=== PATIENT | female | born 1955 | race Caucasian/White ===

== ENCOUNTER → 2019-09-24 | Day surgery (SDC) | payer MEDICARE, BC ==
--- OUTSIDE RECORDS SUMMARY | 2019-09-23 12:12 | XMSREPORT | Referral Summary ---
:1955 Author Organization [facility] and [facility] s Address [address] [place] [address] Care Team Providers Name Role Phone Di Knight MD Unavailable Mellisa Lagos MD Primary Care Provider Mellisa Lagos MD Attributed Provider Reason for Referral Transitions of Care (Routine) Status Reason Specialty Diagnoses / Referred By Referred To Procedures Contact Contact New Request Patient Diagnoses Family history of colon cancer in mother Addy Lagos Chi S t Preference D, [facility], [address] [facility] [place] [address] [address] Phone: [place] [address] Fax: Reason for Visit Reason Comments Colon Cancer Screening BP meds Encounter Details Date Type Department Care Team Description 09/07/2019 Office Visit [facility] Addy Lagos Esse ntial hypertension (Primary Dx); Clinic Family Medictheo mederos MD Dyslipidemia; [address] Hypothyroidism, unspecified type; SHANEL GALLEGOS [id number] [place] Family history of colon canc er in mother [phone] Allergies Active Allergy Reactions Severity Noted Date Comments Codeine Nausea and Vomiting 09/13/2012 Penicillin Rash 01/22/2012 documented as of this encounter (statuses as of 09/07/2019) Medications Medication Sig Dispensed Refills Start Date End Date Status simvastatin (ZOCOR) Take 20 mg by 0 Active 20 mg tablet mouth every night at bedtime. aspirin 81 mg Take 81 mg by 0 Ac tive enteric coated mouth 1 time tablet per day. cholecalciferol Take 2,000 0 Act veda (VITAMIN D3) 2000 Units by mouth UNITS capsule 1 time per day ibuprofen Take 600 mg by 0 Activ e (ADVIL;MOTRIN-IB) mouth every 6 200 mg tablet hours as needed for moderate pain albuterol HFA Inhale 1 puff 3 Inhaler 0 12/25/2017 A ctive (ALBUTEROL, VENTOLIN orally every 6 BRAND,) 108 (90 hours as needed Base) MCG/ACT for shortness inhalerIndications: of breath, Mild intermittent wheezing or asthma without cough Shake complication well before using. predniSONE 20 mg 3 po Once Daily 18 tablet 0 02/26/2019 Active tabletIndications: x 3 days then 2 Sinusitis, po Once Daily x unspecified 3 days then 1 chronicity, po Once Daily x unspecified 3 days location, Moderate persistent asthma without complication pantoprazole TAKE 1 TABLET 90 tablet 1 03/13/2019 Ac tive (PROTONIX) 40 mg BY MOUTH DAILY enteric coated tabletIndications: Essential hypertension DULoxetine TAKE ONE 90 capsule 1 03/13/2019 Active (CYMBALTA) 60 mg CAPSULE BY capsuleIndications: MOUTH ONCE Osteoporosis, DAILY FOR unspecified DEPRESSION, osteoporosis type, ANXIETY, NERVE unspecified PAIN pathological fracture presence amLODIPine (NORVASC) TAKE 2 TABLETS 180 tablet 1 03/13/2019 Active 5 mg BY MOUTH ONCE tabletIndications: DAILY Essential hypertension calcitriol TAKE ONE 90 capsule 1 03/13/2019 Active (ROCALTROL) 0.25 mcg CAPSULE BY capsuleIndications: MOUTH DAILY Osteoporosis, unspecified osteoporosis type, unspecified pathological fracture presence potassium chloride TAKE 1 TABLET 90 tablet 1 03/13/2019 Active (K-TAB) 10 mEq CR BY MOUTH DAILY tabletIndications: FOR POTASSIUM Essential SUPPLEMENT hypertension raloxifene (EVISTA) TAKE 1 TABLET 90 tablet 1 03/13/2019 Active 60 mg BY MOUTH ONCE tabletIndications: DAILY Osteoporosis, unspecified osteoporosis type, unspecified pathological fracture presence levoFLOXacin Take 1 tablet 10 tablet 0 04/28/2019 Ac tive (LEVAQUIN) 500 mg (500 mg) by tabletIndications: mouth 1 time Sinusitis, per day unspecified chronicity, unspecified location montelukast Take 1 tablet 90 tablet 3 05/01/2019 05/06/19 Act veda (SINGULAIR) 10 mg (10 mg) by 21 tabletIndications: mouth every Mild intermittent night at asthma without bedtime complication azelastine (ASTELIN) USE 2 SPRAYS IN 90 mL 3 05/14/2019 Active 137 mcg/spray nasal EACH NOSTRIL sprayIndications: EVERY 12 HOURS Chronic allergic rhinitis diclofenac sodium Take 1 tablet 180 tablet 4 05/19/2019 Active (VOLTAREN) 75 mg (75 mg) by 21 delayed-release mouth 2 times a (enteric coated) day tabletIndications: Chronic pain of left knee levothyroxine 175 TAKE 1 90 tablet 0 07/13/2019 A ctive mcg TABLET(175 MCG) tabletIndications: BY MOUTH EVERY Hypothyroidism, DAY unspecified type lisinopril-hydroCHLO Take 1 tablet 180 tablet 1 09/07/2019 Active ROthiazide by mouth 2 (ZESTORETIC) 10-12.5 times a day mg tabletIndications: Essential hypertension lisinopril-hydroCHLO TAKE 1 TABLET 90 tablet 1 03/13/201908/12 Discontinued ROthiazide BY MOUTH EVERY 20 (ZESTORETIC) 10-12.5 DAY mg tabletIndications: Essential hypertension documented as of this encounter (statuses as of 09/07/2019) Active Problems Problem Noted Date Primary osteoarthritis of left knee 05/19/2019 GERD (gastroesophageal reflux disease) 02/05/2019 Mild intermittent asthma without complication 02/06/20 19 Severe obesity (BMI 35.0-39.9) with comorbidity 2018 History of thyroid cancer 12/25/2017 Essential hypertension 12/25/2017 Hypothyroidism 12/25/2017 Dyslipidemia 12/25/2017 Postoperative hypothyroidism 12/25/2017 S/P vascular surgery documented as of this encounter (statuses as of 09/07/2019) Immunizations Name Administration Dates Next Due Influenza Trivalent w/preserv 11/17/2013, 11/21/2011, 11/29, 12/06/2009 FLU VACCINE HIGH DOSE 65YR+(Fluzone) 10/29/2018 FLU VACCINE SINGLE DOSE 11/18/2017 0.5mL(6MO+Fluzone/Flulaval/Fluarix,3YR +Afluria) Influenza Vaccine,unspecified 11/18/2017, 11/19/2016, 2015, 11/09/2014, 11/17/2013, 11/18/2012, 11/21/2011, 11/29/2010, 12/06/2009 Pneumococcal Conj PCV13 09/20/2016 Pneumococcal Polysaccharide PPSV23 10/29/2018 Sodium Tetradecyl 01/31/2016 TDAP 02/27/2012 Zoster Live(Zostavax) 09/20/2016 documented as of this encounter Social History Tobacco Use Types Packs/Day Years Used Date Former Smoker Quit: 12/25/18 88 Smokeless Tobacco: Never Used Alcohol Use Drinks/Week oz/Week Comments Yes occ Physical Activity Answer Date Recorded On average, how many days per week do you engage in moderate to 1 day 04/09/2019 strenuous exercise (like walking fast, running, jogging, dancing, swimming, biking, or other activities that cause a light or heavy sweat)? On average, how many minutes do you engage in exercise at th is 30 min 04/09/2019 level? Sex Assigned at Date Recorded Not on file Job Start Date Occupation Industry Not on file Not on file Not on file Travel History Travel Start Travel End No recent travel history available. documented as of this encounter Last Filed Vital Signs Vital Sign Reading Time Taken Comments Blood Pressure 150/82 09/07/2019 9:03 AM CDT Pulse 100 09/07/2019 9:03 AM CDT Temperature 35.9 C (96.6 F) 09/07/2019 9:03 AM CDT Respiratory Rate - - Oxygen Saturation 96% 09/07/2019 9:03 AM CDT Inhaled Oxygen Concentration - - Weight 103.9 kg (229 lb) 09/07/2019 9:03 AM CDT Height - - Body Mass Index 38.11 05/19/2019 9:23 AM CDT documented in this encounter Functional Status Functional Status Response Date of Assessment Is the person deaf or does he/she have serious difficulty No 12/13/2015 hearing? Is this person blind or does he/she have difficulty No 12/13/2015 seeing even when wearing glasses? Do you have difficulty with walking, balance, climbing Yes 04/09/2019 stairs, or had a fall in the last 3 months? Does the patient have difficulty dressing or bathing? No 09/16/2014 Because of a physical, mental, or emotional condition; No 09/16/2014 does this person have difficulty doing errands alone such as visiting a doctor's office or shopping? Cognitive Status Response Date of Assessment Because of a physical, mental, or emotional condition; No 09/16/2014 does this person have serious difficulty concentrating, remembering, or making decisions? documented as of this encounter Progress Notes Addy Lagos MD - 09/07/2019 9:17 AM CDT Assessment / Plan Essential hypertension - COMPREHENSIVE METABOLIC PANEL; Future - lisinopril-hydroCHLOROthiazide (ZESTORETIC) 10-12.5 mg tablet; Take 1 tablet by mouth 2 times a day Dispense: 180 tablet; Refill: 1 Dyslipidemia - COMPREHENSIVE METABOLIC PANEL; Future Hypothyroidism, unspecified type Family history of colon cancer in mother - CLINIC REFERRAL ENDOSCOPY NON ONE CHART Plan: 1laboratory studies pending Colonoscopy order placed We will continue her present antihypertensive regimen and consider titrating up further next month if needed. Medications Outpatient Medications Prior to Visit Medication Sig Dispense Refill levothyroxine 175 mcg tablet TAKE 1 TABLET(175 MCG) BY MOUTH EVERY DAY 90 tablet 0 diclofenac sodium (VOLTAREN) 75 mg delayed-release (enteric coated) tablet Take 1 tablet (75 mg)by mouth 2 times a day 180 tablet 4 azelastine (ASTELIN) 137 mcg/spray nasal spray USE 2 SPRAYS IN EACH NOSTRIL EVERY 12 HOURS 90 mL3 montelukast (SINGULAIR) 10 mg tablet Take 1 tablet (10 mg) by mouth every night at bedtime 90 tablet 3 levoFLOXacin (LEVAQUIN) 500 mg tablet Take 1 tablet (500 mg) by mouth 1 time per day 10 tablet 0 pantoprazole (PROTONIX) 40 mg enteric coated tablet TAKE 1 TABLET BY MOUTH DAILY 90 tablet 1 amLODIPine (NORVASC) 5 mg tablet TAKE 2 TABLETS BY MOUTH ONCE DAILY 180 tablet 1 calcitriol (ROCALTROL) 0.25 mcg capsule TAKE ONE CAPSULE BY MOUTH DAILY 90 capsule 1 potassium chloride (K-TAB) 10 mEq CR tablet TAKE 1 TABLET BY MOUTH DAILY FOR POTASSIUM SUPPLEMENT 90 tablet 1 raloxifene (EVISTA) 60 mg tablet TAKE 1 TABLET BY MOUTH ONCE DAILY 90 tablet 1 albuterol HFA (ALBUTEROL, VENTOLIN BRAND,) 108 (90 Base) MCG/ACT inhaler Inhale 1 puff orally every 6 hours as needed for shortness of breath, wheezing or cough Shake well before using. 3 Inhaler 0 cholecalciferol (VITAMIN D3) 2000 UNITS capsule Take 2,000 Units by mouth 1 time per day ibuprofen (ADVIL;MOTRIN-IB) 200 mg tablet Take 600 mg by mouth every 6 hours as needed for moderate pain aspirin 81 mg enteric coated tablet Take 81 mg by mouth 1 time per day. simvastatin (ZOCOR) 20 mg tablet Take 20 mg by mouth every night at bedtime. DULoxetine (CYMBALTA) 60 mg capsule TAKE ONE CAPSULE BY MOUTH ONCE DAILY FOR DEPRESSION, ANXIETY, NERVE PAIN 90 capsule 1 lisinopril-hydroCHLOROthiazide (ZESTORETIC) 10-12.5 mg tablet TAKE 1 TABLET BY MOUTH EVERY DAY 90 tablet 1 predniSONE 20 mg tablet 3 po Once Daily x 3 days then 2 po Once Daily x 3 days then 1 po Once Daily x 3 days 18 tablet 0 Facility-Administered Medications Prior to Visit Medication Dose Route Frequency Provider Last Rate Last Dose vancomycin 1,500 mg in sodium chloride 0.9% 250 mL 1,500 mg IV 1 time Kristofer Strickland DO sodium chloride 0.9% IV solution flush bag 250 mL 250 mL IV Continuous Kristofer Strickland DO Allergies Allergies Allergen Reactions Penicillin Rash Codeine Nausea and Vomiting Problem List Patient Active Problem List Diagnosis S/P vascular surgery History of thyroid cancer Essential hypertension Hypothyroidism Dyslipidemia GERD (gastroesophageal reflux disease) Mild intermittent asthma without complication Postoperative hypothyroidism Severe obesity (BMI 35.0-39.9) with comorbidity (HCC) Primary osteoarthritis of left knee History Dayanna presents today for review of her blood pressure. She is due for lab work. She also has dyslipidemia and is due for her liver function tests. We did increase her lisinopril to twice daily a few days ago. She has noticed her pressures are starting to come down. Her home readings are running in the 140s systolic now. We'll have her continue that dose and recheck her blood pressure in another 3 weeks or so. She is also due for her colonoscopy. It is just over 5 years now. We will get that scheduled for [facility]. That would be her preference. This is being done for her family history of a mother with colon cancer. No other concerns today Physical Exam BP 150/82 Pulse 100 Temp 96.6 F (35.9 C) (Tympanic) Wt 103.9 kg (229 lb) SpO2 96% BMI 38.11kg/m2|| Heartnormal sinus rhythm Lungsclear No lower extremity edema. documented in this encounter Plan of Treatment Name Type Priority Associated Diagnoses Order S [facility] COMPREHENSIVE METABOLIC Lab Routine [facility] hypertension Expected: 09/07/2019 PANEL Dyslipidemia (Approximate), Expires: 2020 Name Type Priority Associated Diagnoses Order S [facility] CLINIC REFERRAL Referral Routine Family history of colon O rdered: 09/07/2019 ENDOSCOPY NON ONE CHART cancer in mother documented as of this encounter Visit Diagnoses Diagnosis Essential hypertension - Primary Unspecified essential hypertension Dyslipidemia Other and unspecified hyperlipidemia Hypothyroidism, unspecified type Family history of colon cancer in mother documented in this encounter"
[~2019-09-24] MED LIST: Midazolam 1 MG/ML 2 ML SDV ONE; Propofol 200 MG/20 ML SDV ONE; Sodium Chloride 0.9% 1,000 ML IV SCH; fentaNYL 100 MCG/2 ML SDV ONE
--- NOTE | 2019-09-24 15:01 | OR ---
DATE OF PROCEDURE: 09/24/2019 SURGEON: Antony Nieves MD PROCEDURE: Colonoscopy. FINDINGS: Normal colonoscopy. COMPLICATIONS: None. DIALS SUPERVISOR: None. ANESTHESIA: MAC. PREOPERATIVE DIAGNOSIS: Family history of colorectal cancer. POSTOPERATIVE DIAGNOSIS: Family history of colorectal cancer. RISKS: Risks, benefits, alternatives, and limitations including, but not limited to infection, bleeding, and perforation were explained to the patient, who wished to proceed. PROCEDURE IN DETAIL: The patient was placed in the left lateral decubitus position. Digital rectal exam was performed without abnormality. Scope was introduced and advanced atraumatically to the ileocecal valve. A photo was taken of this. Scope was brought back through the ascending, transverse, descending colon, and retroflexed. No evidence of old or new blood. No masses. No polyps. No abnormalities on retroflexion. The patient tolerated the procedure well. Antony Nieves MD /[id number]
== END ==
LOC: JP.SDS 06:28
PROVIDERS: ATTEND Surgery
DX: Z12.11 Encounter for screening for malignant neoplasm of colon (principal); J45.909 Unspecified asthma, uncomplicated; I10 Essential (primary) hypertension; K21.9 Gastro-esophageal reflux disease without esophagitis; E66.01 Morbid (severe) obesity due to excess calories; E03.9 Hypothyroidism, unspecified; Z88.0 Allergy status to penicillin; Z88.5 Allergy status to narcotic agent; Z80.8 Family history of malignant neoplasm of other organs or systems; Z68.36 Body mass index [BMI] 36.0-36.9, adult; Z80.0 Family history of malignant neoplasm of digestive organs
CPT/HCPCS: G0105; J2250; J2704; J3010; J7030

== ENCOUNTER 2020-12-18 10:38 | Emergency (ER) | payer MEDICARE, BC ==
--- NOTE | 2020-12-18 10:45 | EDM.PDOC ---
ED HPI GENERAL MEDICAL PROBLEM - General Chief Complaint: Lower Extremity Injury/Pain Stated Complaint: MEDICAL VIA [facility] Time Seen by Provider: 12/18/20 10:39 Source of Information: Reports: Patient, EMS, Old Records History Limitations: Reports: No Limitations - History of Present Illness INITIAL COMMENTS - FREE TEXT/NARRATIVE: 65 yo female with a somewhat recent hx of R hip replacement presents via EMS with R hip pain after she "moved her leg wrong". EMS administered IV Dilaudid, Zofran, and Versed. Her surgery was at [facility]. Onset: Today, Sudden Onset Date: 12/18/20 Duration: Minutes: Location: Reports: Lower Extremity, Right Quality: Reports: Ache (at rest, sharp with movement), Sharp, Stabbing Severity: Severe (only with movement) Improves with: Reports: Rest Worsens with: Reports: Movement Context: Reports: Other (see HPI) Associated Symptoms: Reports: No Other Symptoms Treatments MENTAL HEALTH PROGRAM MANAGER: Reports: Other (see below) (See HPI) - Related Data Allergies Allergy/AdvReac Type Severity Reaction Status Date / Time codeine Allergy Nausea Verified 09/24/19 06:47 Penicillins Allergy Rash Verified 09/24/19 06:47 Home Meds: Home Meds Albuterol [Ventolin HFA] 1 puff IH Q4H PRN 09/22/19 [History] Aspirin [Halfprin] 81 mg PO DAILY 09/22/19 [History] Azelastine [Astelin Nasal Soln] 2 sprays NASBOTH Q12HR PRN 09/22/19 [History] DULoxetine HCl [Duloxetine HCl] 60 mg PO DAILY 09/22/19 [History] Levothyroxine 200 mcg PO ACBREAKFAST 09/22/19 [History] Pantoprazole Sodium [Protonix] 40 mg PO DAILY 09/22/19 [History] amLODIPine Besylate [Amlodipine Besylate] 5 mg PO DAILY 09/22/19 [History] calcitrioL [Calcitriol] 0.25 mcg PO DAILY 09/22/19 [History] Cetirizine HCl [Allergy Relief] 10 mg PO DAILY 09/24/19 [History] Montelukast [Singulair] 10 mg PO DAILY 09/24/19 [History] Acetaminophen [Pain Relief] 650 mg PO Q6H PRN 12/18/20 [History] Acetaminophen/oxyCODONE [Percocet 325-5 MG] 1 each PO Q4HR PRN #12 tab 12/18/20 [Rx] Ascorbic Acid [Vitamin C] 1,000 mg PO DAILY 12/18/20 [History] Calcium Carb, Citrate/Vit D3 [Citracal + D ER] 1 tab PO DAILY 12/18/20 [History] Cholecalciferol (Vitamin D3) [Vitamin D3] 2,000 units PO DAILY 12/18/20 [History] Lisinopril/Hydrochlorothiazide [Lisinopril-Hctz 10-12.5 mg Tab] 1 tab PO BID 12/18/20 [History] Melatonin 5 mg PO BEDTIME 12/18/20 [History] Naproxen 250 mg PO BID 12/18/20 [History] Simvastatin 20 mg PO DAILY 12/18/20 [History] Past Medical History HEENT History: Reports: Allergic Rhinitis, Impaired Vision Cardiovascular History: Reports: Hypertension, SOB on Exertion Respiratory History: Reports: Asthma Gastrointestinal History: Reports: GERD Genitourinary History: Reports: None PERSONAL BANKING REPRESENTATIVE History: Reports: Musculoskeletal History: Reports: Arthritis Neurological History: Reports: None Psychiatric History: Reports: Anxiety, Depression Endocrine/Metabolic History: Reports: Hypothyroidism Hematologic History: Reports: None Immunologic History: Reports: None Oncologic (Cancer) History: Reports: Thyroid Dermatologic History: Reports: None - Infectious Disease History Infectious Disease History: Reports: Chicken Pox, Scarlet Fever - Past Surgical History HEENT Surgical History: Reports: Tonsillectomy, Other (See Below) Other HEENT Surgeries/Procedures: DEVIATED SEPTRUM SURGERY Cardiovascular Surgical History: Reports: None Respiratory Surgical History: Reports: None GI Surgical History: Reports: Colonoscopy, EGD Female Surgical History: Reports: Section Endocrine Surgical History: Reports: None Neurological Surgical History: Reports: None Musculoskeletal Surgical History: Reports: Shoulder Surgery Oncologic Surgical History: Reports: Other (See Below) Other Oncologic Surgeries/Procedures: THYROIDECTOMY Dermatological Surgical History: Reports: None Social & Family History - Family History Family Medical History: No Pertinent Family History - Caffeine Use Caffeine Use: Reports: Coffee Review of Systems - Review of Systems Review Of Systems: See Below Constitutional: Reports: No Symptoms Respiratory: Reports: No Symptoms Cardiovascular: Reports: No Symptoms GI/Abdominal: Reports: No Symptoms Musculoskeletal: Reports: Joint Pain (R hip) Skin: Reports: No Symptoms Neurological: Reports: No Symptoms ED EXAM, GENERAL - Physical Exam Exam: See Below Exam Limited By: No Limitations General Appearance: Alert, WD/WN, No Apparent Distress, Obese Eye Exam: Bilateral Eye: Normal Inspection Ears: Normal External Exam, Hearing Grossly Normal. No: Hearing Loss Ear Exam: Bilateral Ear: Auricle Normal Nose: Normal Inspection, No Blood Throat/Mouth: Normal Inspection, Normal Lips, Normal Oropharynx, Normal Voice, No Airway Compromise Head: Atraumatic, Normocephalic Neck: Normal Inspection Respiratory/Chest: No Respiratory Distress, Lungs Clear, Normal Breath Sounds, No Accessory Muscle Use Cardiovascular: Regular Rate, Rhythm, No Edema Extremities: Normal Inspection, No Pedal Edema. No: Normal Range of Motion, Non-Tender, Pedal Edema, Sanjay's Sign Neurological: Alert, Oriented, CN II-XII Intact, Normal Cognition, No Motor/Sensory Deficits Psychiatric: Normal Affect, Normal Mood Skin Exam: Warm, Dry, Intact, Normal Color, No Rash Course - Vital Signs Last Recorded V/S: Last Vital Signs Temp 35.5 C L 12/18/20 11:07 Pulse 86 12/18/20 11:07 Resp 18 12/18/20 11:07 BP 150/68 H 12/18/20 11:07 Pulse Ox 93 L 12/18/20 11:07 - Radiology Interpretation Free Text/Narrative:: R hip [id number]: Prior right total hip arthroplasty. Components appear well seated and normally aligned. Age indeterminate avulsion fracture of the superior aspect of the greater trochanter. Recommend comparison with prior studies. If there are no prior studies this could be further evaluated with CT. Calcified mass in the pelvis is presumably related to a fibroid. Dictated by Landon Wills MD @ 12/18/2020 12:44:36 PM Departure - Departure Time of Disposition: 13:10 Disposition: Home, Self-Care 01 Condition: Fair Clinical Impression: Right hip pain - Discharge Information *PRESCRIPTION DRUG MONITORING PROGRAM REVIEWED*: Yes *COPY OF PRESCRIPTION DRUG MONITORING REPORT IN PATIENT ROGER: Yes Instructions: Hip Pain Referrals: PCP,None [Primary Care Provider] - Forms: ED Department Discharge Additional Instructions: Use naproxen and if needed Percocet for pain relief. Stay in communication with your orthopedic surgeon regarding your hip pain. We are sending your X-rays to [place] so your doctor can review them. Use your walker when ambulating. Your Percocet Rx went to [facility]. Sepsis Event Note (ED) - Focused Exam Vital Signs: Vital Signs Temp Pulse Resp BP Pulse Ox 12/18/20 11:07 35.5 C L 86 18 150/68 H 93 L 12/18/20 10:50 35.5 C L 86 18 150/68 H 93 L
--- NOTE | 2020-12-18 12:45 | CRLCR ---
For Patients: As a result of the Cures Act, medical imaging exams and procedure reports are released immediately into your electronic medical record. You may view this report before your referring provider. If you have questions, please contact your health care provider. INDICATION: Trauma. Pain. TECHNIQUE: AP and crosstable lateral views of the right hip. COMPARISON: None. IMPRESSION: Prior right total hip arthroplasty. Components appear well seated and normally aligned. Age indeterminate avulsion fracture of the superior aspect of the greater trochanter. Recommend comparison with prior studies. If there are no prior studies this could be further evaluated with CT. Calcified mass in the pelvis is presumably related to a fibroid. Dictated by Landon Wills MD @ 12/18/2020 12:44:36 PM Dictated by: Landon Wills MD @ 12/18/2020 12:45:22 (Electronically Signed)
== END 2020-12-18 13:25 | disposition home or self-care (01) ==
LOC: JP.ED 10:38
DX: M25.551 Pain in right hip (principal); I10 Essential (primary) hypertension; K21.9 Gastro-esophageal reflux disease without esophagitis; E03.9 Hypothyroidism, unspecified; Z88.5 Allergy status to narcotic agent; Z88.0 Allergy status to penicillin; Z79.82 Long term (current) use of aspirin; Z79.899 Other long term (current) drug therapy
CPT/HCPCS: 73502-RT; 99284